=== PATIENT | female | born 1945 | race Caucasian/White ===

== ENCOUNTER 2022-11-20 07:07 | Day surgery (SDC) | payer OTHER ==
[~2022-11-20] VITALS: Ht 160 cm; Wt 77.6 kg
[2022-11-20] MEDS ORDERED: MEPERIDINE HCL/PF 25 MG/ML DISP.SYRIN ONE (07:52)
[2022-11-20] MEDS ORDERED: MEPERIDINE 100 MG INJ. 100 MG/ML VIAL ONE (08:05)
[2022-11-20] MEDS: MIDAZOLAM HCL 5 MG/5 ML VIAL ONE ×4 (10:04→10:15)
[2022-11-20 14:29] VITALS: BP_SYST 118
== END 2022-11-20 12:00 | disposition home or self-care (01) ==
LOC: SDS 07:07 → SMU 07:08 → SDS 12:00
PROVIDERS: ATTEND Internal Medicine Gastroenterology
DX: Z12.11 Encounter for screening for malignant neoplasm of colon (principal); D12.3 Benign neoplasm of transverse colon; K57.30 Diverticulosis of large intestine without perforation or abscess without bleeding; K64.8 Other hemorrhoids; Z86.010 Personal history of colon polyps; I10 Essential (primary) hypertension; E11.9 Type 2 diabetes mellitus without complications; K21.9 Gastro-esophageal reflux disease without esophagitis; F41.9 Anxiety disorder, unspecified; M19.90 Unspecified osteoarthritis, unspecified site; F32.A Depression, unspecified; Z79.82 Long term (current) use of aspirin; Z79.84 Long term (current) use of oral hypoglycemic drugs; Z79.899 Other long term (current) drug therapy
CPT/HCPCS: 45380; 45385; 82962; 88305; 99152; 99153; G0378; J2250; J2175; 45382